=== PATIENT | female | born 1960 | race Caucasian/White ===

== ENCOUNTER 2021-01-28 08:30 | Emergency (ER) | payer OTHER ==
[~2021-01-28] VITALS: Ht 162.6 cm; Wt 94.9 kg
[2021-01-28] MEDS ORDERED: ATORVASTATIN CA20 MG PO (08:57)
[2021-01-28] MEDS ORDERED: LEVOTHYROXINE50 MCG PO (08:57)
[2021-01-28] MEDS ORDERED: GLIPIZIDE10 MG (08:57)
[2021-01-28] MEDS ORDERED: LISINOPRIL10 MG PO (08:57)
[2021-01-28] MEDS ORDERED: IOPAMIDOL 370 MG/ML 200 ML INFUS..BTL INJ ONE (10:44)
[2021-01-28] MEDS ORDERED: SODIUM CHLORIDE 0.9% 50ML 50 ML ONE (10:44)
[2021-01-28] MEDS ORDERED: CLINDAMYCIN 600MG / 50ML 50 ML IV ONE (11:15)
[2021-01-28] MEDS ORDERED: CLEOCIN HCL300 MG PO (11:57)
[2021-01-28] MEDS ORDERED: NEOMYCIN-POLYMY10 ML LEFT EAR (12:03)
[2021-01-28 12:12] VITALS: BP 117/69
== END 2021-01-28 12:23 | disposition home or self-care (01) ==
LOC: FSED 08:40
DX: H60.92 Unspecified otitis externa, left ear (principal); I88.9 Nonspecific lymphadenitis, unspecified; E11.65 Type 2 diabetes mellitus with hyperglycemia; I10 Essential (primary) hypertension; E78.5 Hyperlipidemia, unspecified; E03.9 Hypothyroidism, unspecified
CPT/HCPCS: 70491; 80053; 81003; 85025; 99284; Q9967

== ENCOUNTER 2022-02-16 18:46 | Emergency (ER) | payer OTHER ==
[~2022-02-16] VITALS: Ht 162.6 cm; Wt 95.3 kg
[~2022-02-16 18:46] MED LIST: ATORVASTATIN CA20 MG PO; CLEOCIN HCL300 MG PO; GLIPIZIDE10 MG; LEVOTHYROXINE50 MCG PO; LISINOPRIL10 MG PO; NEOMYCIN-POLYMY10 ML LEFT EAR; SODIUM CHLORIDE 0.9% 1000ML 1,000 ML IV SCH; SODIUM CHLORIDE FLUSH 10 ML SYR IV PRN
[2022-02-16] MEDS ORDERED: ONDANSETRON HCL INJ 2MG/ML 2ML 2 MG/ML VIAL IV STA (19:25)
[2022-02-16] MEDS ORDERED: SODIUM CHLORIDE 0.9% 1000ML 1,000 ML ONE (19:46)
[2022-02-16] MEDS ORDERED: ONDANSETRON HCL INJ 2MG/ML 2ML 2 MG/ML VIAL ONE (19:46)
[2022-02-16] MEDS ORDERED: IOPAMIDOL 370 MG/ML 100 ML INFUS..BTL INJ ONE (19:53)
[2022-02-16] MEDS ORDERED: ONDANSETRON ODT4 MG PO (21:24)
[2022-02-16] MEDS ORDERED: MIRALAX17 GM PO (21:24)
[2022-02-16] MEDS ORDERED: DOCUSATE SODIU100 MG PO (21:24)
== END 2022-02-16 21:56 | disposition home or self-care (01) ==
LOC: FSED 19:19
DX: R14.0 Abdominal distension (gaseous) (principal); R11.0 Nausea; K59.00 Constipation, unspecified; K57.90 Diverticulosis of intestine, part unspecified, without perforation or abscess without bleeding; I10 Essential (primary) hypertension; E11.9 Type 2 diabetes mellitus without complications; E78.5 Hyperlipidemia, unspecified; N28.1 Cyst of kidney, acquired; K76.0 Fatty (change of) liver, not elsewhere classified; E03.9 Hypothyroidism, unspecified
CPT/HCPCS: 74177; 87400; 99283; J2405; J7030; Q9967

== ENCOUNTER → 2024-06-20 | Day surgery (SDC) | payer OTHER ==
[~2024-06-20] MED LIST changes: +DOCUSATE SODIU100 MG PO; +FENTANYL CITRATE/PF 100MCG/2 ML INJ ONE; +FERROUS SULFAT325 MG PO; +GLUCAGON FOR INJ 1 MG VIAL ONE; +GLYCOPYRROLATE INJ 0.2 MG/ML VIAL ONE; +HYOSCYAMINE SULFATE 0.5 MG/ML INJ ONE; +LIDOCAINE HCL 2% LOCAL INJ 5 ML SDV VIAL INJ ONE; +MAGNESIUM200 MG PO; +METFORMIN HCL500 M2 PO; +METOCLOPRAMIDE HCL 10 MG/2ML VIAL ONE; +MIRALAX17 GM PO; +ONDANSETRON ODT4 MG PO; +PHENYLEPHRINE HCL 1% 10 MG/ML VIAL ONE; +PROPOFOL IV EMULSION 10 MG/ML 20 ML VIAL ONE; -SODIUM CHLORIDE 0.9% 1000ML 1,000 ML IV SCH; -SODIUM CHLORIDE FLUSH 10 ML SYR IV PRN; +VASOTEC10 M1 PO
[2024-06-20] MEDS: LACTATED RINGER'S 1,000 ML ONE (11:43)
[2024-06-20 14:12] VITALS: TEMP 97.4
[2024-06-20 14:55] VITALS: BP 118/74; PULSE 82; RESP 17; O2SAT 97
== END | disposition home or self-care (01) ==
LOC: OR 11:41
PROVIDERS: ATTEND Internal Medicine Gastroenterology
DX: D50.8 Other iron deficiency anemias (principal); K63.5 Polyp of colon; K29.50 Unspecified chronic gastritis without bleeding; K26.9 Duodenal ulcer, unspecified as acute or chronic, without hemorrhage or perforation; K20.90 Esophagitis, unspecified without bleeding; K21.9 Gastro-esophageal reflux disease without esophagitis; K57.30 Diverticulosis of large intestine without perforation or abscess without bleeding; K64.8 Other hemorrhoids; Z71.3 Dietary counseling and surveillance; G47.33 Obstructive sleep apnea (adult) (pediatric); E11.9 Type 2 diabetes mellitus without complications; I10 Essential (primary) hypertension; E78.5 Hyperlipidemia, unspecified; E66.01 Morbid (severe) obesity due to excess calories; J45.909 Unspecified asthma, uncomplicated; M19.90 Unspecified osteoarthritis, unspecified site; G89.29 Other chronic pain; F32.A Depression, unspecified; Z01.810 Encounter for preprocedural cardiovascular examination; Z79.84 Long term (current) use of oral hypoglycemic drugs; Z79.899 Other long term (current) drug therapy; Z68.31 Body mass index [BMI] 31.0-31.9, adult
CPT/HCPCS: 43239; 45385; 93005; J1610; J1980; J2001; J2371; J2470; J2704; J2765; J3010; J7121; 45378

== ENCOUNTER → 2024-07-08 | Outpatient (REF) | payer OTHER ==
[~2024-07-08] MED LIST changes: -FENTANYL CITRATE/PF 100MCG/2 ML INJ ONE; -GLUCAGON FOR INJ 1 MG VIAL ONE; -GLYCOPYRROLATE INJ 0.2 MG/ML VIAL ONE; -HYOSCYAMINE SULFATE 0.5 MG/ML INJ ONE; -LIDOCAINE HCL 2% LOCAL INJ 5 ML SDV VIAL INJ ONE; -METOCLOPRAMIDE HCL 10 MG/2ML VIAL ONE; -PHENYLEPHRINE HCL 1% 10 MG/ML VIAL ONE; -PROPOFOL IV EMULSION 10 MG/ML 20 ML VIAL ONE
== END ==
LOC: DX 08:34
PROVIDERS: ATTEND Nurse Practitioner
DX: D64.89 Other specified anemias (principal)
CPT/HCPCS: 74250